=== PATIENT | male | born 1960 | race Caucasian/White ===

== ENCOUNTER → 2016-05-15 | Outpatient (CLI) | payer BC ==
[~2016-05-15] MED LIST: ALBU1AER9 INH; ATOR10TA82 PO; FLUT0.0529 NAE; FLUT0.15 NAE; GLC/500 PO; LOSA1TAB PO; MAGN250T3 PO; MONT1TAB5 PO; MULT-506 PO; OMEG10007 PO; OPTIRAY 320 IV PRN; PRLSR20 PO; PROAIR INH; PROB500T8 PO; SYMIN INH; [UNRECOGNIZED DRUG - CODE] PO
--- NOTE | 2016-05-15 17:10 | DIAGNOSTIC IMAGING REPORT ---
ABDOMEN AND PELVIS CT WITH IV AND ORAL CONTRAST CT DOSE: 1111.23 mGycm HISTORY: Pain. Nausea. R10.9 Abdominal [id number] TECHNIQUE: Multiaxial CT images of the abdomen and pelvis were performed following the use of intravenous and oral contrast. COMPARISON STUDY: 02/13/2008 FINDINGS: Lung bases are clear. Mild fatty infiltration of liver. Prior cholecystectomy. Pancreas is uniform. Spleen is unremarkable. Bowel pattern within the abdomen and pelvis is considered nonobstructive. Normal-appearing appendix. Bladder is midline. No free fluid within the pelvic cul-de-sac. Small fat-containing nonobstructive bilateral inguinal hernias. These are unchanged in the prior study. Kidneys negative for mass or hydronephrosis. IMPRESSION: 1. Fatty infiltration of liver. 2. Otherwise negative study of the abdomen and pelvis. 3. No change from the prior exam. Electronically signed by: Erwin Potts M.D. 05/15/2016 5:08 PM Dictated Date/Time: 05/15/2016 5:05 PM
== END | disposition home or self-care (01) ==
LOC: C.CTS 16:37
PROVIDERS: ATTEND Surgery
DX: R10.9 Unspecified abdominal pain (principal); K76.0 Fatty (change of) liver, not elsewhere classified

== ENCOUNTER → 2016-08-22 | Outpatient (CLI) | payer BC ==
[~2016-08-22] MED LIST changes: -ATOR10TA82 PO; +ATOR10TA88 PO; -OPTIRAY 320 IV PRN
[2016-08-22 10:05] LABS: BLOOD UREA NITROGEN 22 mg/dl (7-18); BUN/CREATININE RATIO 21.8 (10-20); CALCIUM 9.1 mg/dl (8.5-10.1); CARBON DIOXIDE 26 mmol/L (21-32); CHLORIDE 109 mmol/L (98-107); GLUCOSE 125 mg/dl (70-99); POTASSIUM 4.5 mmol/L (3.5-5.1); SODIUM 143 mmol/L (136-145)
[2016-08-22 10:11] LABS: ESTIMATED AVERAGE GLUCOSE 140 mg/dl; HA1C FLAG Normal (Normal)
== END | disposition home or self-care (01) ==
LOC: C.LAB 07:03
PROVIDERS: ATTEND Nurse Practitioner Family
DX: R73.09 Other abnormal glucose (principal)

== ENCOUNTER 2016-10-03 16:24 | Emergency (ER) | payer BC ==
[~2016-10-03] VITALS: Ht 182.9 cm; Wt 113.0 kg
[~2016-10-03 16:24] MED LIST changes: -FLUT0.15 NAE; -GLC/500 PO; -PROAIR INH
[2016-10-03 16:27] VITALS: TEMP 36.7; Ht 182.9 cm; Wt 113.0 kg
[2016-10-03] MEDS ORDERED: ASPIRIN 81 MG CHEW PO STA (16:40)
[2016-10-03] MEDS ORDERED: SODIUM CHLORIDE 0.9% 1000ML 1,000 ML IV STA (16:40)
[2016-10-03 17:02] VITALS: O2SAT 98
[2016-10-03 17:08] LABS: BASO ABS # 0.05 K/uL (0-0.2); COMPLETE YES; EOS % 3.7 %; HEMATOCRIT 41.9 % (42-52); IG% 0.2 %; LYMPH % 34.2 %; LYMPH ABS # 1.77 K/uL (1.2-3.4); MEAN CELL VOLUME 86.4 fL (80-100); MEAN CORPUSCULAR HEMOGLOBIN 29.7 pg (25-34); MEAN CORPUSCULAR HGB CONC 34.4 g/dl (32-36); MEAN PLATELET VOLUME 10.4 fL (7.4-10.4); MONO % 9.7 %; NEUT % 51.2 %; PLATELET COUNT 155 K/uL (130-400); RED BLOOD COUNT 4.85 M/uL (4.7-6.1); WHITE BLOOD COUNT 5.17 K/uL (4.8-10.8)
[2016-10-03] MEDS ORDERED: FLUT0.15 NAE (17:08)
[2016-10-03] MEDS ORDERED: PROAIR INH (17:08)
[2016-10-03] MEDS ORDERED: GLC/500 PO (17:08)
--- NOTE | 2016-10-03 17:25 | DIAGNOSTIC IMAGING REPORT ---
SINGLE VIEW CHEST CLINICAL HISTORY: Atypical chest pain. FINDINGS: An AP, portable, upright chest radiograph is compared to study dated 02/10/2016. The examination is degraded by portable technique and apical lordotic positioning. The cardiomediastinal silhouette is unremarkable. The lungs and pleural spaces are clear. No pneumothorax is seen. The bony thorax is grossly intact. IMPRESSION: No active disease in the chest. Electronically signed by: Juan J Geiger M.D. 10/03/2016 5:24 PM Dictated Date/Time: 10/03/2016 5:23 PM
[2016-10-03 17:26] LABS: BUN/CREATININE RATIO 16.9 (10-20); CALCIUM 8.7 mg/dl (8.5-10.1); CREATININE 0.9 mg/dl (0.60-1.40)
[2016-10-03 17:31] LABS: CKMB/CK RATIO 1.1 (0-3.0)
--- NOTE | 2016-10-03 18:19 | EMERGENCY ROOM VISIT NOTE ---
History Report prepared by Vonda: Lady Jacobs Under the Supervision of: Dr. Joss Roche M.D. First contact with patient: 16:32 Chief Complaint: CHEST PAIN Stated Complaint: LEFT ARM PAIN, CHEST PAIN History of Present Illness The patient is a 56 year old male who presents to the Emergency Room with complaints of persistent chest pain starting yesterday. The patient was sent to the ED from urgent care. The pain seems to radiate from his left arm into his chest and back. The pain started while he was at work yesterday. 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 He does not crawl often and thinks that he might be having muscular pain from the crawling. The pain lasted while he was crawling around and resolved after rest. He denies any SOB, pain with breathing, abdominal pain, hematochezia, melena, numbness, weakness, headache, trouble speaking or swallowing, pain or swelling in the legs. He denies any recent fall or trauma. He has a history of GERD and asthma. His father passed from an UT at the age of 54. He is not on aspirin. He denies smoking, alcohol use, drug use. He was admitted back in January for chest pain. He had a stress test 2 years ago. He has had a cholecystectomy. Source of History: patient, spouse/significant other Onset: yesterday Position: chest Quality: other (pain) Timing: other (persistent) Associated Symptoms: + back pain, No headache, No SOB, No abdominal pain, No melena, No hematochezia, No weakness, No numbness Note: Pt reports left arm pain. Pt denies pain with breathing, trouble speaking or swallowing, leg pain or swelling. Review of Systems See HPI for pertinent positives & negatives. A total of 10 systems reviewed and were otherwise negative. Past Medical & Surgical Medical Problems: (1) Asthma (2) Bilateral inguinal hernia (3) Cervical vertebral fusion (4) Chest pain radiating to arm (5) GERD (gastroesophageal reflux disease) (6) Hypercholesterolemia (7) Hypertension Surgical Problems: (1) History of bilateral inguinal hernia repair Old medical records were reviewed. Nurse's notes were reviewed and I agree with. No history of cardiac disease. He's had stress tests in the past he tells me Family History Acute myocardial infarction Diabetes mellitus Heart disease Hypertension Social History Smoking Status: Former Smoker Alcohol Use: occasionally Drug Use: none Marital Status: Housing Status: lives with significant other Occupation Status: employed Current/Historical Medications Scheduled Atorvastatin (Lipitor), 10 MG PO DAILY Budesonide/Formoterol Fumarate (Symbicort 160-4.5 Mcg/Act), 2 PUFFS INH BID Fish Oil (Embarrass-3), 1,000 MG PO DAILY Fluticasone Propionate (Nasal) (Flonase Allergy Relief), 1 SPRAY ANDREW BID Losartan Potassium (Cozaar), 25 MG PO DAILY Magnesium (Magnesium 250 mg), 500 MG PO BID Metformin Hcl (Glucophage), 500 MG PO DAILY Montelukast Sodium (Montelukast Sodium), 10 MG PO DAILY Multivitamin (Multivitamin), 1 TAB PO DAILY Omeprazole (Prilosec), 20 MG PO BID Probenecid (Benemid), 250 MG PO BID Scheduled PRN [Proair], 2 PUFF INH QID PRN for SOB/Wheezing Allergies Coded Allergies: Chlorhexidine (Verified Allergy, Intermediate, REDNESS/ITCHING, 02/10/16) Physical Exam Vital Signs Date Time Temp Pulse Resp B/P (MAP) Pulse Ox O2 Delivery O2 Flow Rate FiO2 10/03/16 18:20 66 12 143/95 98 10/03/16 18:05 70 25 99 10/03/16 18:00 153/97 10/03/16 18:00 153/97 10/03/16 17:54 98 10/03/16 17:54 98 10/03/16 17:54 72 11 98 10/03/16 17:54 72 11 98 10/03/16 17:39 97 10/03/16 17:39 68 14 97 10/03/16 17:39 97 10/03/16 17:39 68 14 97 10/03/16 17:30 134/95 10/03/16 17:30 134/95 10/03/16 17:24 70 13 97 10/03/16 17:24 97 10/03/16 17:24 97 10/03/16 17:24 70 13 97 10/03/16 17:09 98 10/03/16 17:09 98 10/03/16 17:09 70 15 98 10/03/16 17:09 70 15 98 10/03/16 17:02 98 Room Air 10/03/16 17:00 138/87 10/03/16 17:00 138/87 10/03/16 16:54 66 12 10/03/16 16:54 66 12 10/03/16 16:53 67 10/03/16 16:37 161/94 10/03/16 16:37 161/94 10/03/16 16:27 36.7 77 20 155/87 97 Room Air Physical Exam General: Non ill appearing middle age male in no acute distress. Well developed well nourished, breathing comfortably on room air. Normal speech HEENT: Normal cephalic atraumatic. Pupils are equal round and reactive to light. Extraocular movements are intact. Oropharynx is pink with moist mucous membranes. No swelling of the mouth lips or tongue. Neck: Supple with a midline trachea. No meningeal signs or stiffness, no JVD or bruits. No Stridor. Chest: Clear to auscultation bilaterally. No wheezes or rhonchi. No increased work of breathing. Heart: regular rate and rhythm. Abdomen: Soft nontender, nondistended without rebound guarding or rigidity. Extremities: No cyanosis clubbing or edema. No calf tenderness or assymetry Spine/Back. Non tender to palpation. No CVA tenderness Skin: Good turgor without rashes. Neurologic exam: Cranial nerves two through 12 are intact. Motor and sensation are intact and symmetrical throughout. Medical Decision & Procedures ER Provider Diagnostic Interpretation: X-ray results as stated below per interpretation by me and the radiologist: SINGLE VIEW CHEST CLINICAL HISTORY: Atypical chest pain. FINDINGS: An AP, portable, upright chest radiograph is compared to study dated 02/10/2016. The examination is degraded by portable technique and apical lordotic positioning. The cardiomediastinal silhouette is unremarkable. The lungs and pleural spaces are clear. No pneumothorax is seen. The bony thorax is grossly intact. IMPRESSION: No active disease in the chest. Electronically signed by: Juan J Geiger M.D. 10/03/2016 5:24 PM Dictated Date/Time: 10/03/2016 5:23 PM Laboratory Results 10/03/16 17:00 Red Blood Count 4.85, Mean Corpuscular Volume 86.4, Mean Corpuscular Hemoglobin 29.7, Mean Corpuscular Hemoglobin Concent 34.4, Mean Platelet Volume 10.4, Neutrophils (%) (Auto) 51.2, Lymphocytes (%) (Auto) 34.2, Monocytes (%) (Auto) 9.7, Eosinophils (%) (Auto) 3.7, Basophils (%) (Auto) 1.0, Neutrophils # (Auto) 2.65, Lymphocytes # (Auto) 1.77, Monocytes # (Auto) 0.50, Eosinophils # (Auto) 0.19, Basophils # (Auto) 0.05 10/03/16 17:00 Test 10/03/16 17:00 10/03/16 17:02 White Blood Count 5.17 K/uL (4.8-10.8) Red Blood Count 4.85 M/uL (4.7-6.1) Hemoglobin 14.4 g/dL (14.0-18.0) Hematocrit 41.9 % (42-52) Mean Corpuscular Volume 86.4 fL (80-100) Mean Corpuscular Hemoglobin 29.7 pg (25-34) Mean Corpuscular Hemoglobin Concent 34.4 g/dl (32-36) Platelet Count 155 K/uL (130-400) Mean Platelet Volume 10.4 fL (7.4-10.4) Neutrophils (%) (Auto) 51.2 % Lymphocytes (%) (Auto) 34.2 % Monocytes (%) (Auto) 9.7 % Eosinophils (%) (Auto) 3.7 % Basophils (%) (Auto) 1.0 % Neutrophils # (Auto) 2.65 K/uL (1.4-6.5) Lymphocytes # (Auto) 1.77 K/uL (1.2-3.4) Monocytes # (Auto) 0.50 K/uL (0.11-0.59) Eosinophils # (Auto) 0.19 K/uL (0-0.5) Basophils # (Auto) 0.05 K/uL (0-0.2) RDW Standard Deviation 39.5 fL (36.4-46.3) RDW Coefficient of Variation 12.4 % (11.5-14.5) Immature Granulocyte % (Auto) 0.2 % Immature Granulocyte # (Auto) 0.01 K/uL (0.00-0.02) Anion Gap 8.0 mmol/L (3-11) Est Creatinine Clear Calc Drug Dose 119.0 ml/min Estimated GFR () 110.3 Estimated GFR (Non- 95.1 BUN/Creatinine Ratio 16.9 (10-20) Calcium Level 8.7 mg/dl (8.5-10.1) Total Bilirubin 0.7 mg/dl (0.2-1) Direct Bilirubin 0.2 mg/dl (0-0.2) Aspartate Amino Transf (AST/SGOT) 39 U/L (15-37) Alanine Aminotransferase (ALT/SGPT) 101 U/L (12-78) Alkaline Phosphatase 54 U/L (45-117) Total Creatine Kinase 170 U/L (39-308) Creatine Kinase MB 1.9 ng/ml (0.5-3.6) Creatine Kinase MB Ratio 1.1 (0-3.0) Total Protein 7.2 gm/dl (6.4-8.2) Albumin 4.3 gm/dl (3.4-5.0) Lipase 173 U/L (73-393) Bedside Troponin I < 0.030 ng/ml (0-0.045) Laboratory studies as stated above per my review. Medications Administered Medications (Trade) Dose Ordered Sig/Arianne Route Start Time Stop Time Status Last Admin Dose Admin Sodium Chloride 1,000 ml @ 999 mls/hr Q1H1M STAT IV 10/03/16 16:40 10/03/16 17:40 DC 10/03/16 17:09 999 MLS/HR Aspirin (Aspirin Chew) 324 mg NOW STAT PO 10/03/16 16:40 10/03/16 16:42 DC 10/03/16 17:06 324 MG ECG Indication: chest pain Rate (beats per minute): 65 Rhythm: normal sinus Findings: no acute ischemic change, no ectopy Comparison ECG Date: 10-Feb-2016 Change: no significant change ED Course 1633: Past medical records reviewed. The patient was evaluated in room B2, and a complete history and physical examination were performed. 1640: Aspirin 324 mg PO, NSS 1000 ml @ 999 mls/hr IV. 1802: Upon reevaluation, the patient is feeling better and would not like to stay. I discussed the results and treatment plan with him. He verbalized agreement of the treatment plan. The patient was discharged home. Medical Decision Differentials include, but are not limited to; ACS, musculoskeletal, electrolyte or metabolic abnormality, GERD, anxiety. This patient comes in as described above. 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 He has no chest pain at present. This has been going on since yesterday. EKG shows no ischemic changes. troponin and cardiac enzymes are not elevated despite having pain since yesterday. his chest x-ray is unremarkable. He has no acute electrolyte or metabolic abnormalities. He was given aspirin upon arrival and is resting comfortably. Given that the time period of his symptoms, I do not is likely cardiac. I talked to the patient and his at length and I told him we could admit him for further inpatient treatment and evaluation. He strongly desires to go home and I think that this is reasonable with close follow-up with his regular doctor. He was encouraged to return if : increasing pain, worsening of symptoms, any new problems or concerns. He should take a baby aspirin a day. The patient and his are happy the plan and he was discharged to home. Medication Reconcilliation Current Medication List: was personally reviewed by me Blood Pressure Screening Patient's blood pressure: Elevated blood pressure Blood pressure disposition: Elevated BP felt to be situational Impression Primary Impression: Precordial chest pain Scribe Attestation The scribe's documentation has been prepared under my direction and personally reviewed by me in its entirety. I confirm that the note above accurately reflects all work, treatment, procedures, and medical decision making performed by me. Departure Information Dispostion Home / Self-Care Referrals Robi Sanchez III, CRNP (PCP) Forms Call Back Authorization, HOME CARE DOCUMENTATION FORM, IMPORTANT VISIT INFORMATION Patient Instructions My [facility] [employer] Additional Instructions Rest. Drink plenty of fluids. Take a baby aspirin 81 mg enteric-coated a day Return to the ER if: Worsening of symptoms, chest pain, shortness breath, any new problems or concerns. Follow-up with your doctor tomorrow you may need further workup as an outpatient
[2016-10-03 18:20] VITALS: BP 143/95; PULSE 66; O2SAT 98
== END 2016-10-03 18:38 | disposition home or self-care (01) ==
LOC: C.EDB 16:26
DX: R07.2 Precordial pain (principal); I10 Essential (primary) hypertension; E78.00 Pure hypercholesterolemia, unspecified; K21.9 Gastro-esophageal reflux disease without esophagitis; J45.909 Unspecified asthma, uncomplicated; Z98.1 Arthrodesis status; Z87.891 Personal history of nicotine dependence; Z79.84 Long term (current) use of oral hypoglycemic drugs; Z79.899 Other long term (current) drug therapy; Z88.8 Allergy status to other drugs, medicaments and biological substances; Z82.49 Family history of ischemic heart disease and other diseases of the circulatory system; Z83.3 Family history of diabetes mellitus

== ENCOUNTER → 2017-03-12 | Outpatient (CLI) | payer BC ==
[~2017-03-12] MED LIST changes: -ALBU1AER9 INH; +ATOR10TA82 PO; -ATOR10TA88 PO; -FLUT0.0529 NAE; +FLUT0.15 NAE; +GLC/500 PO; +PROAIR INH; -[UNRECOGNIZED DRUG - CODE] PO
[2017-03-12 09:33] LABS: BASO % 0.6 %; BASO ABS # 0.03 K/uL (0-0.2); EOS % 2.8 %; EOS ABS # 0.15 K/uL (0-0.5); HEMATOCRIT 42.7 % (42-52); HEMOGLOBIN 14.7 g/dL (14.0-18.0); IG# 0.02 K/uL (0.00-0.02); LYMPH % 10.8 %; LYMPH ABS # 0.58 K/uL (1.2-3.4); MEAN CELL VOLUME 86.8 fL (80-100); MEAN CORPUSCULAR HEMOGLOBIN 29.9 pg (25-34); MEAN CORPUSCULAR HGB CONC 34.4 g/dl (32-36); MEAN PLATELET VOLUME 10.3 fL (7.4-10.4); MONO ABS # 0.32 K/uL (0.11-0.59); NEUT % 79.4 %; NEUT ABS # 4.26 K/uL (1.4-6.5); PLATELET COUNT 136 K/uL (130-400); RED CELL DISTRIBUTION WIDTH CV 12.7 % (11.5-14.5); RED CELL DISTRIBUTION WIDTH SD 40.6 fL (36.4-46.3); WHITE BLOOD COUNT 5.36 K/uL (4.8-10.8)
[2017-03-12 09:40] LABS: HEMOGLOBIN A1C 5.8 % (4.5-5.6)
[2017-03-12 10:01] LABS: CREATININE RANDOM URINE 93.2 mg/dl
[2017-03-12 10:04] LABS: ALBUMIN 4.3 gm/dl (3.4-5.0); ALT/SGPT 87 U/L (12-78); BLOOD UREA NITROGEN 15 mg/dl (7-18); CALCIUM 9.3 mg/dl (8.5-10.1); CARBON DIOXIDE 27 mmol/L (21-32); CHOLESTEROL 130 mg/dl (0-200); CREATININE 0.85 mg/dl (0.60-1.40); GLUCOSE 113 mg/dl (70-99); POTASSIUM 4.5 mmol/L (3.5-5.1); SODIUM 138 mmol/L (136-145)
[2017-03-12 10:08] LABS: ALKALINE PHOSPHATASE 48 U/L (45-117); AST/SGOT 34 U/L (15-37); LDL CHOLESTEROL CALCULATED 56 mg/dl
== END | disposition home or self-care (01) ==
LOC: C.LAB 08:31
PROVIDERS: ATTEND Nurse Practitioner Family
DX: E11.9 Type 2 diabetes mellitus without complications (principal); E78.00 Pure hypercholesterolemia, unspecified

== ENCOUNTER → 2017-04-01 | Outpatient (CLI) | payer BC ==
--- NOTE | 2017-04-01 10:02 | DIAGNOSTIC IMAGING REPORT ---
CHEST 2 VIEWS ROUTINE CLINICAL HISTORY: J45.909 [id number] Acute bronchitis, unspecified organism COMPARISON STUDY: 10/03/2016 FINDINGS: The cardiac and mediastinal contours are normal. There is no evidence of focal pulmonary consolidation. There is no evidence of failure. No pleural effusions are visualized.[ Postsurgical changes are present within the cervical spine IMPRESSION: No active disease in the chest. Electronically signed by: Bret Ga M.D. 04/01/2017 10:01 AM Dictated Date/Time: 04/01/2017 10:00 AM
== END | disposition home or self-care (01) ==
LOC: C.RAD 09:36
PROVIDERS: ATTEND Nurse Practitioner Family
DX: J20.9 Acute bronchitis, unspecified (principal); J45.909 Unspecified asthma, uncomplicated

== ENCOUNTER → 2017-05-07 | Outpatient (CLI) | payer BC ==
--- NOTE | 2017-05-07 15:36 | DIAGNOSTIC IMAGING REPORT ---
TWO VIEW CHEST CLINICAL HISTORY: Acute bronchitis. FINDINGS: PA and lateral chest radiographs are compared to study dated 04/01/2017. The cardiomediastinal silhouette is unremarkable. There is mild elevation of right hemidiaphragm. The lungs and pleural spaces are clear. There is no pneumothorax. The bony thorax appears intact. Fusion hardware is noted in the lower cervical spine. IMPRESSION: No active disease in the chest. Electronically signed by: Juan J Geiger M.D. 05/07/2017 3:34 PM Dictated Date/Time: 05/07/2017 3:34 PM
== END | disposition home or self-care (01) ==
LOC: C.RAD 15:04
PROVIDERS: ATTEND Nurse Practitioner Family
DX: J20.8 Acute bronchitis due to other specified organisms (principal)

== ENCOUNTER → 2017-09-07 | Outpatient (CLI) | payer BC ==
[2017-09-07 08:08] LABS: BASO % 0.8 %; BASO ABS # 0.05 K/uL (0-0.2); EOS % 2.4 %; EOS ABS # 0.15 K/uL (0-0.5); HEMATOCRIT 44.5 % (42-52); HEMOGLOBIN 15.8 g/dL (14.0-18.0); IG# 0.02 K/uL (0.00-0.02); LYMPH % 28.3 %; MEAN CELL VOLUME 84.4 fL (80-100); MEAN CORPUSCULAR HGB CONC 35.5 g/dl (32-36); MEAN PLATELET VOLUME 10.6 fL (7.4-10.4); MONO % 8.5 %; MONO ABS # 0.54 K/uL (0.11-0.59); NEUT % 59.7 %; PLATELET COUNT 180 K/uL (130-400); RED CELL DISTRIBUTION WIDTH CV 12.6 % (11.5-14.5); RED CELL DISTRIBUTION WIDTH SD 38.2 fL (36.4-46.3); WHITE BLOOD COUNT 6.36 K/uL (4.8-10.8)
[2017-09-07 08:53] LABS: ALBUMIN 4.2 gm/dl (3.4-5.0); ALKALINE PHOSPHATASE 56 U/L (45-117); ALT/SGPT 137 U/L (12-78); AST/SGOT 55 U/L (15-37); BLOOD UREA NITROGEN 26 mg/dl (7-18); CALCIUM 8.8 mg/dl (8.5-10.1); CARBON DIOXIDE 25 mmol/L (21-32); CHOLESTEROL 120 mg/dl (0-200); GLUCOSE 138 mg/dl (70-99); LDL CHOLESTEROL CALCULATED 53 mg/dl; POTASSIUM 4.4 mmol/L (3.5-5.1); SODIUM 138 mmol/L (136-145); TOTAL PROTEIN 7.3 gm/dl (6.4-8.2); URIC ACID 7.8 mg/dl (2.6-7.2)
[2017-09-07 09:29] LABS: HEMOGLOBIN A1C 6.6 % (4.5-5.6)
== END | disposition home or self-care (01) ==
LOC: C.LAB 07:33
PROVIDERS: ATTEND Nurse Practitioner Family
DX: Z86.19 Personal history of other infectious and parasitic diseases (principal)